=== PATIENT | female | born 1950 | race Caucasian/White ===

== ENCOUNTER 2017-11-05 13:19 | Inpatient (IN) ==
--- NOTE | 2017-11-05 15:06 | Emergency Department Note ---
Disposition Clinical Impression: Tachycardia, Elevated brain natriuretic peptide (BNP) level Hypertension Qualifiers: Hypertension type: unspecified Qualified Code(s): I10 - Essential (primary) hypertension Pulmonary edema Qualifiers: Chronicity: acute Qualified Code(s): J81.0 - Acute pulmonary edema Disposition: Admitted As Inpatient Condition: Fair Referrals: NONE,PCP [Primary Care Provider] - Aureliano Pearl [Family Provider] - Forms: ED Satisfaction Letter, Work/School Release Time of Disposition: 18:11 General Adult HPI - General Chief complaint: ED General Medical Stated complaint: Bilat feet / leg swelling Time Seen by Provider: 11/05/17 15:05 Source: patient Mode of arrival: ambulatory Limitations: no limitations Nursing Notes Reviewed: Yes Vital Signs Reviewed: Yes - History of Present Illness HPI Narrative: Patient is a 67-year-old female with past medical history of CVA, hypertension, diabetes, mitral valve prolapse. She presents today due to concern for lower extremity swelling. She states that around 3 weeks ago, she noticed ankle swelling that has progressively worsened up into her thighs and lower abdomen. She is also been mildly short of breath, especially on exertion. Denies any overt chest pain within the past 3 weeks. Denies any other nausea, vomiting, fevers, diarrhea, abdominal pain, dysuria, hematuria. She states that the last time she had an echocardiogram was around 5 years ago and states that she has never officially been diagnosed with CHF. She does not take any water pills daily. She states that she recently had x-rays of the lower 70s and bilateral lower extremity Dopplers that were negative for DVT or any fractures. She does not report any pain of the lower extremities with her swelling. She also notes that she has a history of poorly controlled diabetes and hypertension, says that she was in the hospital about 5 years ago after her stroke try to get blood pressure controlled. She states that she was seen by specialist and her blood pressure was never fully controlled. She is to be on hydralazine but states that she does not take anything recently for blood pressure control. She uses insulin but does state that her blood sugars always run "high" but was not able to give me a number. Pain Scale: 0 - Related Data Allergies Allergy/AdvReac Type Severity Reaction Status Date / Time Erythromycin Base Allergy Hives Verified 11/05/17 13:35 shellfish derived Allergy Anaphylaxis Verified 11/05/17 13:35 All systems ED: reviewed and negative except as stated. Constitutional: Denies: fever Cardiovascular: Denies: chest pain Respiratory: Reports: dyspnea. Denies: cough, wheezes, sputum production Gastrointestinal: Denies: abdominal pain, nausea, vomiting, diarrhea, constipation Genitourinary: Denies: urgency, dysuria, frequency, hematuria Musculoskeletal: Reports: other (Lower extremity edema) Neurological: Denies: headache, weakness, numbness Past Medical History - Past Medical History Attestation: Yes The following information was validated with the patient. Source: patient Medical history: Reports: CVA, diabetes, hypertension Psychiatric history: Reports: anxiety - Social History Smoking Status: Never smoker Smokeless Tobacco Status: No Alcohol use: Reports: none Drug use: Reports: none Physical Exam - General Limitations: no limitations General appearance: alert, in no apparent distress - Head Head exam: atraumatic, normocephalic, normal inspection - Eye Eye exam: Present: normal appearance, PERRL, EOMI - ENT ENT exam: normal exam, normal oropharynx, mucous membranes moist - Neck Neck exam: Present: normal inspection, full ROM, trachea midline - Chest Chest inspection: Present: normal inspection, symmetric chest wall rise - Respiratory Respiratory exam: Present: normal lung sounds bilaterally - Cardiovascular Cardiovascular exam: Present: regular rate, normal rhythm, normal heart sounds - Abdominal Exam Abdominal exam: Present: soft, Non-Tender, distention (Mild swelling/distention of the lower abdomen). Absent: tenderness, guarding, rebound, rigidity, De Leon' s sign, Rovsing's sign, tenderness at McBurney's Point - Extremities Exam Extremities exam: Present: other (Pitting edema of the lower extremities up to thighs and lower abdomen). Absent: tenderness, calf tenderness Course Course Narrative: Patient was tachycardic and hypertensive. We will continue to monitor blood pressure. If blood pressure does not stabilize, we will consider giving patient beta ema to reduce blood pressure and pulse rate. Otherwise, the rest of the vitals within normal limits. Physical exam shows a patient with lower extremity pitting edema up to her lower abdomen. Lungs are nontender, no calf tenderness, no erythema of the lower 70s. No signs of any cellulitis of the lower extremities. Abdomen was soft and nontender. Patient does have a history of mitral valve prolapse, has not had an echocardiogram within 5 years. Currently concern for possible CHF. We will obtain a CT bloodwork, troponin, EKG, chest x-ray. We will consider giving patient a dose of Lasix here for swelling. Patient was getting short of breath with just talking to me in the room. Will possibly admit the patient for further workup if vitals and subjective shortness breath do not improve. 17:26 BNP elevated in the 500s. Chest x-ray shows pulmonary vascular congestion and pulmonary edema. Patient looked like a fib on monitor, but EKG shows P waves, sinus rhythm. She denies any history of A. fib, not on any blood thinners. Due to P waves on EKG and in sinus rhythm, no blood thinners started at this time.. Patient was given a beta ema and Lasix 40 mg. She responded well to Lopressor 5 mg. Heart rate is now in the low 100s. Blood pressure has went from 2:30 systolic down to 190. Patient was at first adamant about not staying due to "having a clamp and shellfish/calcium allergy "and she states that she is allergic to multiple foods and did not want to stay for further care. However, after long discussion, patient has now agreed to come into the hospital for further evaluation of possible new onset congestive heart failure. Recommend the patient needs a echocardiogram for further evaluation. Vital Signs Temperature 97.8 F 11/05/17 13:29 Pulse Rate 122 11/05/17 13:29 Respiratory Rate 16 11/05/17 13:29 Blood Pressure 205/133 11/05/17 13:29 O2 Sat by Pulse Oximetry 97 11/05/17 13:29 Temperature 97.8 F 11/05/17 13:29 Pulse Rate 107 11/05/17 17:34 Respiratory Rate 18 11/05/17 17:34 Blood Pressure 188/112 11/05/17 17:34 O2 Sat by Pulse Oximetry 94 11/05/17 17:34 Oxygen Delivery Oxygen Delivery Room Air Medical Decision Making - [facility] Narrative Medical decision making narrative: Patient was tachycardic and hypertensive. We will continue to monitor blood pressure. If blood pressure does not stabilize, we will consider giving patient beta ema to reduce blood pressure and pulse rate. Otherwise, the rest of the vitals within normal limits. Physical exam shows a patient with lower extremity pitting edema up to her lower abdomen. Lungs are nontender, no calf tenderness, no erythema of the lower 70s. No signs of any cellulitis of the lower extremities. Abdomen was soft and nontender. Patient does have a history of mitral valve prolapse, has not had an echocardiogram within 5 years. Currently concern for possible CHF. We will obtain a CT bloodwork, troponin, EKG, chest x-ray. We will consider giving patient a dose of Lasix here for swelling. Patient was getting short of breath with just talking to me in the room. Will possibly admit the patient for further workup if vitals and subjective shortness breath do not improve. 17:26 BNP elevated in the 500s. Chest x-ray shows pulmonary vascular congestion and pulmonary edema. Patient looked like a fib on monitor, but EKG shows P waves, sinus rhythm. She denies any history of A. fib, not on any blood thinners. Due to P waves on EKG and in sinus rhythm, no blood thinners started at this time.. Patient was given a beta ema and Lasix 40 mg. She responded well to Lopressor 5 mg. Heart rate is now in the low 100s. Blood pressure has went from 2:30 systolic down to 190. Patient was at first adamant about not staying due to "having a clamp and shellfish/calcium allergy "and she states that she is allergic to multiple foods and did not want to stay for further care. However, after long discussion, patient has now agreed to come into the hospital for further evaluation of possible new onset congestive heart failure. Recommend the patient needs a echocardiogram for further evaluation. - Medical Records Medical records reviewed: Yes I reviewed the patient's medical records. - Lab Data Lab results reviewed: Yes I reviewed the patient's lab results. Result diagrams: 11/05/17 15:48 11/05/17 15:48 Lab Results 11/05/17 11/05/17 11/05/17 Range/Units 15:45 15:48 15:48 WBC 6.8 (4.3-11.1) K/mcL RBC 5.51 H (3.82-4.97) M/mcL Hgb 11.8 (11.5-15.4) g/dL Hct 39.6 (35.3-44.9) % MCV 71.9 L (83.0-100.0) fL MCH 21.4 L (28.0-33.3) pg MCHC 29.8 L (31.6-35.5) g/dL RDW 18.2 H (11.5-14.5) % Plt Count 302 (140-400) K/mcL MPV 10.9 (9.4-12.4) fL Immature Gran % 0.4 (0-4) % Seg Neutrophils % 67.6 % Lymphocytes % 20.7 % Monocytes % 6.5 % Eosinophils % 3.8 % Basophils % 1.0 % Neutrophils # 4.6 (1.6-8.9) K/mcL Lymphocytes # 1.4 (0.6-4.6) K/mcL Monocytes # 0.4 (0.0-1.3) K/mcL Eosinophils # 0.3 (0.0-0.6) K/mcL Basophils # 0.1 (0.0-0.2) K/mcL VBG pH (7.32-7.42) pH Units VBG pCO2 (41-51) mmHg VBG pO2 (25-50) mmHg VBG HCO3 (21-27) mEq/L Sodium 136 (136-145) mEq/L Potassium 3.9 (3.5-5.1) mEq/L Chloride 106 (98-107) mEq/L Carbon Dioxide 22 L (23-29) mEq/L BUN 16 (8-23) mg/dL Creatinine 0.77 (0.60-1.20) mg/dL Est GFR ( Amer) > 60 (> 60) Est GFR (Non-Af Amer) > 60 (> 60) BUN/Creatinine Ratio 21 (6-26) Glucose 267 H (70-105) mg/dL Calculated Osmolality 293 (280-300) Calcium 9.4 (8.6-10.3) mg/dL Total Bilirubin 1.5 H (0.3-1.0) mg/dL Direct Bilirubin 0.5 H (0.0-0.2) mg/dL Indirect Bilirubin 1.0 (0.0-1.2) mg/dL AST 14 (13-39) Units/L ALT 9 (7-52) Units/L Alkaline Phosphatase 97 (34-104) Units/L Troponin I 0.03 (< 0.04) ng/mL B-Natriuretic Peptide (Less than 100) pg/mL Serum Total Protein 6.8 (6.4-8.9) g/dL Albumin 3.9 (3.5-5.7) g/dL Globulin 2.9 (2.4-3.5) g/dL Albumin/Globulin Ratio 1.3 (1.1-2.2) Beta-Hydroxybutyric Acd 0.21 (0.02-0.27) mmol/L 11/05/17 11/05/17 Range/Units 15:48 16:10 WBC (4.3-11.1) K/mcL RBC (3.82-4.97) M/mcL Hgb (11.5-15.4) g/dL Hct (35.3-44.9) % MCV (83.0-100.0) fL MCH (28.0-33.3) pg MCHC (31.6-35.5) g/dL RDW (11.5-14.5) % Plt Count (140-400) K/mcL MPV (9.4-12.4) fL Immature Gran % (0-4) % Seg Neutrophils % % Lymphocytes % % Monocytes % % Eosinophils % % Basophils % % Neutrophils # (1.6-8.9) K/mcL Lymphocytes # (0.6-4.6) K/mcL Monocytes # (0.0-1.3) K/mcL Eosinophils # (0.0-0.6) K/mcL Basophils # (0.0-0.2) K/mcL VBG pH 7.43 H (7.32-7.42) pH Units VBG pCO2 31 L (41-51) mmHg VBG pO2 83 H (25-50) mmHg VBG HCO3 21 (21-27) mEq/L Sodium (136-145) mEq/L Potassium (3.5-5.1) mEq/L Chloride (98-107) mEq/L Carbon Dioxide (23-29) mEq/L BUN (8-23) mg/dL Creatinine (0.60-1.20) mg/dL Est GFR ( Amer) (> 60) Est GFR (Non-Af Amer) (> 60) BUN/Creatinine Ratio (6-26) Glucose (70-105) mg/dL Calculated Osmolality (280-300) Calcium (8.6-10.3) mg/dL Total Bilirubin (0.3-1.0) mg/dL Direct Bilirubin (0.0-0.2) mg/dL Indirect Bilirubin (0.0-1.2) mg/dL AST (13-39) Units/L ALT (7-52) Units/L Alkaline Phosphatase (34-104) Units/L Troponin I (< 0.04) ng/mL B-Natriuretic Peptide 588 H (Less than 100) pg/mL Serum Total Protein (6.4-8.9) g/dL Albumin (3.5-5.7) g/dL Globulin (2.4-3.5) g/dL Albumin/Globulin Ratio (1.1-2.2) Beta-Hydroxybutyric Acd (0.02-0.27) mmol/L - Radiology Data Radiology results reviewed: Yes I reviewed the patient's radiology results. Chest X-Ray 11/05/17 15:31 IMPRESSION: Cardiomegaly with mild pulmonary vascular congestion and edema. D/ / Betty Rich MD / Betty Rich MD Interpreting Provider: Betty Rich MD - EKG Data EKG #1 EKG attestation: Yes I reviewed and interpreted this EKG. S.B.A.R. - S.B.A.R. Situation: Demographics, MOA Background: Presenting Complaint, Relevant PMH, Meds, & Allergies Assessment: Vital Signs, Course and respsone to treatment, Exam Concerns, Patient/Family Expectation, Pertinant Lab Results Recommendation: Barrier(s) to disposition, Recommendation based on pending studies, treatments, or consults S.B.A.R. Report Given to: Dr. Carrillo Attestation Statement - Attestation Attestation: I examined this patient and my medical decision-making was reviewed with the Resident Physician, Dr. Cook. I agree with the documented findings, disposition and treatment plan as described except to the extent set forth below. Patient is a 67-year-old white female with history of hypertension and diabetes who presents to the permit today with a three-week history of gradually worsening lower extremity edema. Patient complains of some associated mild shortness of breath and chest tightness but states she has systolic time. During my assessment patient has some conversational dyspnea but no hypoxia. Patient is tachycardic and hypertensive on arrival but resting comfortably in no acute distress during my assessment. Patient states she has never been told she has congestive heart failure and has only ever taken Lasix when she was 31 years old and it was a one-time dose for lower leg edema and has not had any formal cardiac evaluation. Patient is not on any medication for diabetes or her blood pressure stating that she has had numerous specialists see her and has had difficulty with labile blood sugars as well as blood pressures and does not do well on medication. Patient denies any prior heart attack or cardiac evaluation. I agree with patient's physical exam findings as documented. Patient was tachycardic and hypertensive on arrival. Was placed on school lunch monitor and continuous pulse ox IV was established and labs were drawn and sent portal chest x-ray was obtained and she will be given aspirin. Patient's EKG shows atrial fibrillation at 99 bpm there is no old EKG for comparison. Chest x-ray shows cardiomegaly with pulm vascular congestion and edema. Patient's troponin is 0.03, BNP is elevated, patient with hyperglycemia without acidosis. Patient will be treated with aspirin and Lasix IV in the emergency department and we will watch her heart rate closely and instituted medications for rate control for her A. fib if necessary. We will also monitor her blood pressure closely as well. Patient will be admitted for further evaluation of new onset atrial fibrillation, CHF,. Patient's blood pressure remains elevated and following EKG review patient is in A. fib with RVR. Dr. Cook reviewed the patient's results and need for admission as well as medication to control her heart rate and blood thinners to be started. Patient stated she would not like to stay in the hospital and wanted to sign out AGAINST MEDICAL ADVICE. I went to bedside immediately to emphasized to the patient the need for hospitalization and further cardiac evaluation. Patient is initially refusing medications and is debating on whether or not she is willing to stay in the hospital tonight causing delay of care. Patient did finally consent to receive a dose of Lopressor and a dose of Lasix at bedside. She at this time is stating that she still does not know if she wants to stay in the hospital and that she is requesting time to think about her decision. As soon as patient takes the decision and if she is willing to stay we will complete medications and talk to cardiology.
[2017-11-05 16:12] LABS: VBG HCO3 21 mEq/L (21-27); VBG PCO2 31 mmHg (41-51); VBG PH 7.43 pH Units (7.32-7.42); VBG PO2 83 mmHg (25-50)
[2017-11-05 16:22] LABS: Basophils # 0.1 K/mcL (0.0-0.2); Eosinophils # 0.3 K/mcL (0.0-0.6); Eosinophils % 3.8 %; Hematocrit 39.6 % (35.3-44.9); Hemoglobin 11.8 g/dL (11.5-15.4); Immature Granulocytes % 0.4 % (0-4); Lymphocytes # 1.4 K/mcL (0.6-4.6); Lymphocytes % 20.7 %; Mean Corpuscular HGB Conc 29.8 g/dL (31.6-35.5); Mean Corpuscular Hemoglobin 21.4 pg (28.0-33.3); Mean Corpuscular Volume 71.9 fL (83.0-100.0); Mean Platelet Volume 10.9 fL (9.4-12.4); Monocytes # 0.4 K/mcL (0.0-1.3); Monocytes % 6.5 %; Neutrophils # 4.6 K/mcL (1.6-8.9); Platelet Count 302 K/mcL (140-400); Red Blood Count 5.51 M/mcL (3.82-4.97); Red Cell Distribution Width 18.2 % (11.5-14.5); Segmented Neutrophils % 67.6 %
[2017-11-05 16:33] LABS: Alanine Aminotransferase 9 Units/L (7-52); Albumin 3.9 g/dL (3.5-5.7); Albumin/Globulin Ratio 1.3 (1.1-2.2); Alkaline Phosphatase 97 Units/L (34-104); Aspartate Amino Transferase 14 Units/L (13-39); BUN/Creatinine Ratio 21 (6-26); Bilirubin,Direct 0.5 mg/dL (0.0-0.2); Bilirubin,Total 1.5 mg/dL (0.3-1.0); Blood Urea Nitrogen 16 mg/dL (8-23); Calcium 9.4 mg/dL (8.6-10.3); Carbon Dioxide 22 mEq/L (23-29); Chloride 106 mEq/L (98-107); Globulin 2.9 g/dL (2.4-3.5); Glucose 267 mg/dL (70-105); Osmolality,Calculated 293 (280-300); Potassium 3.9 mEq/L (3.5-5.1); Sodium 136 mEq/L (136-145); Total Protein 6.8 g/dL (6.4-8.9); Troponin I 0.03 ng/mL (< 0.04); eGFR For Non-African Americans > 60 (> 60)
[2017-11-05] MEDS ORDERED: Furosemide 40 MG/4 ML VIAL IVP ONE (16:48)
[2017-11-05] MEDS ORDERED: Aspirin 325 MG TABLET PO ONE (16:48)
[2017-11-05] MEDS ORDERED: *HR* Metoprolol 5 MG/5 ML VIAL IVP ONE (17:06)
[2017-11-05] MEDS ORDERED: *HR* Metoprolol 5 MG/5 ML VIAL IVP PRN (18:26)
[2017-11-05] MEDS ORDERED: Naloxone 0.4 MG/ML INJ IVP PRN (18:32)
[2017-11-05] MEDS ORDERED: Ondansetron 4 MG/2 ML VIAL IVP PRN (18:37)
--- NOTE | 2017-11-05 20:57 | Internal Med History&Physical ---
Date of Encounter: 11/05/17 Time of Encounter: 20:42 Internal Medicine - H&P: HPI Chief complaint: leg edema Admitted From: Home Plans for Post Hospital Care: Home History of present illness: Ms. Garcia is a 67 year old female history of HTN and Mitral Valve Prolaspe presented to ED for bliat pedal edema up to her thighs and abdomen. In ED her HR 122 and BP 224/138- given lopressor and decrease to HR 107 BP 188/112. She was given Lasix 40 IV and notes edema has already started to improve. BNP 588. Chest X-ray showed cardiomegaly, vascular congestion and pleural edeam. There was concern for A foib but EKG showed sinus tachycardia. Onset 3 weeks ago after injury to left ankle with X-ray and US duplex normal. Edema started in right leg and gradually progressed until reached her abdomen- - notes significantly worse in past week. She has had weight gain of at least 35 lbs in 3 weeks with 12 lbs this past week. She admits to shortness of breath with orthopnea at her baseline. She has had mild nausea and increased urinary urgency. She has had significant edema once many years ago and noted that she just took Lasix and then had no problems. She is frustrated that we can't just give her medications or do an echo tonight. She is anxious about being admitted due to significant selfish allergy that resolved in anaphylaxis - as a result she avoids all food with added calcium, some blood thinners, all statins, and all CCBs. She was diagnosed with DM after her CVA - she had long admission of almost 2 months because her blood sugar and blood pressure were difficult to control. She notes metformin doesn't work and that blood glucose is very brittle with insulin . One year ago she was taking lopressor and hydralazine but her blood pressure was never under control- attributed to stress. Her last Echo was 5 years ago and showed Mitral Valve prolapse but no intervention was necessary. She has had MVP since and can sometimes "feel the prolaspe" with severe chest pressure or hear a clicking noise from heart - but denies either recently. Family history of sister also born with heart mummer. Her father form PA at age 53 and mother has DM and first PA in 60s. Never smoker who drinks EtOH once a year and denies illicit substance use. Past Med Surg Social Fam HX - Past Medical History Medical history: CVA, diabetes, hypertension Additional medical history: mitrovalve prolasp Psychiatric history: anxiety - Past Surgical History Additional surgical history: D&C - Social History Smoking Status: Never smoker Smokeless Tobacco Status: No Alcohol use: none Drug use: none Internal Medicine - H&P: Meds Aspirin [Adult Aspirin] 162 mg PO BID 11/05/17 [History] 3 Allergy/AdvReac Type Severity Reaction Status Date / Time Calcium Channel Blocking Allergy Anaphylaxis Verified 11/05/17 20:34 Agent Dilt Erythromycin Base Allergy Hives Verified 11/05/17 13:35 shellfish derived Allergy Anaphylaxis Verified 11/05/17 13:35 [id number] Reductase Allergy Anaphylaxis Verified 11/05/17 20:34 Inhibitor [Statins] All Systems PM: A 10-system review of systems was performed and is negative for pertinent findings except as documented above in the HPI. Review of systems: she is anxious and undeceive about being admitted. Shows poor insight into the seriousness of her medical condition - Constitutional Constitutional: weight gain, no fatigue, no falls - EENT Eyes: no blurry vision, no change in vision - Cardiovascular Cardiovascular ROS IM: dyspnea, edema, orthopnea, no chest pain, no irregular heart rhythm, no palpitations - Respiratory Respiratory: dyspnea on exertion, no cough, no wheezing - Gastrointestinal Gastrointestinal: constipation, nausea, no abdominal pain, no diarrhea, no vomiting - Genitourinary Genitourinary: urinary urgency, no dysuria, no urinary frequency - Musculoskeletal Musculoskeletal ROS IM: back pain, limited range of motion, numbness, tingling, no arthralgias Additional comments: in feet bilat - Integumentary Integumentary IM: rash Additional comments: puritic rash started on week ago and now covers right arm - Neurological Neurological ROS: no confusion, no dizziness, no frequent falls, no headache(s) - Psychiatric Psychiatric: anxiety, no change in appetite - Endocrine Endocrine IM: no fatigue, no polydipsia, no polyphagia, no polyuria - Constitutional Vitals: Temp Pulse Resp BP Pulse Ox 97.8 F 117 16 166/127 97 11/05/17 13:29 11/05/17 19:16 11/05/17 19:16 11/05/17 19:16 11/05/17 19:16 General appearance: Present: mild distress, A&O X 3, pleasant, answers questions appropriately Exam: she appears anxious but sitting comfortably in chair - Head Head exam: Present: atraumatic, normocephalic - ENT ENT exam: Present: mucous membranes moist, normal oropharynx - Respiratory Respiratory exam: Present: rales. Absent: accessory muscle use, wheezes Additional comments: mild rales lower lung - Cardiovascular Cardiovascular exam: Present: systolic murmur, tachycardia - GI/Abdominal GI/Abdominal exam: Present: distended, hyperactive bowel sounds. Absent: mass, splenomegaly, tenderness - Extremities Exam Extremities exam: Present: calf tenderness, full ROM, tenderness. Absent: radial pulses palpable and symmetrical Additional comments: dermatitis on right rosado - Psychiatric Psychiatric exam: Present: anxious, normal affect. Absent: agitated, manic - Skin Skin exam: Present: excoriation, normal color. Absent: diaphoretic, urticaria, vesicles Additional comments: multiple 1-3 mm round excoriations not raised covering right arm with few on back and chest Internal Med - H&P Results - Labs CBC & Chem 7: 11/05/17 15:48 11/05/17 15:48 - Assessment and plan (1) Heart failure Current Visit: Yes Status: Suspected Assessment and plan: High suspicion of heart failure given MVP with pulmonary edema and significant peripheral edema. BNP 588 - Plan for echo tomorrow - consider Cardiology consult - Lasix 40 IV daily - Fluid restriction diet with NPO at midnight - strict I/Os - Lopressor 5 mg IV q 6hr - repeat CMP in am due to Lasix naive Qualifiers: Heart failure chronicity: acute Qualified Code(s): I50.9 - Heart failure, unspecified (2) Hypertension Current Visit: Yes Status: Acute Assessment and plan: Hyptension urgency improved with Lopressor - avoid strict blood pressure control - Lopressor 5 mg IV prn 6 hrs for BP above 180 Qualifiers: Hypertension type: essential hypertension Qualified Code(s): I10 - Essential (primary) hypertension (3) Diabetes Current Visit: Yes Status: Acute Assessment and plan: Uncontrolled DM with non-adherence to medications - low dose ISS - cardiac and diabetic diet - order A1C - Lipid cascade - already scheduled for PCP new patient next week Qualifiers: Diabetes mellitus type: type 2 Diabetes 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
[2017-11-05] MEDS: Insulin LISPRO 300 UNITS/3 ML VIAL SQ SCH (23:16)
[2017-11-05] MEDS: hydrALAZINE 10 MG TABLET PO PRN (23:31)
[2017-11-06] MEDS ORDERED: cloNIDine HCl 0.1 MG TABLET PO ONE (03:56)
[2017-11-06] MEDS ORDERED: cloNIDine HCl 0.1 MG TABLET ONE (04:01)
[2017-11-06 04:32] LABS: Basophils # 0.1 K/mcL (0.0-0.2); Basophils % 0.9 %; Eosinophils # 0.3 K/mcL (0.0-0.6); Eosinophils % 3.9 %; Hematocrit 39.6 % (35.3-44.9); Hemoglobin 11.7 g/dL (11.5-15.4); Immature Granulocytes % 0.3 % (0-4); Lymphocytes # 1.8 K/mcL (0.6-4.6); Lymphocytes % 23.7 %; Mean Corpuscular HGB Conc 29.5 g/dL (31.6-35.5); Mean Corpuscular Hemoglobin 20.9 pg (28.0-33.3); Mean Corpuscular Volume 70.7 fL (83.0-100.0); Mean Platelet Volume 10.5 fL (9.4-12.4); Monocytes # 0.7 K/mcL (0.0-1.3); Monocytes % 9.2 %; Neutrophils # 4.6 K/mcL (1.6-8.9); Platelet Count 314 K/mcL (140-400); Red Cell Distribution Width 18.6 % (11.5-14.5)
[2017-11-06 04:47] LABS: Chol/HDL Ratio 4.8 (0-4.9)
[2017-11-06 04:50] LABS: Alanine Aminotransferase 9 Units/L (7-52); Albumin/Globulin Ratio 1.4 (1.1-2.2); Alkaline Phosphatase 93 Units/L (34-104); Aspartate Amino Transferase 14 Units/L (13-39); BUN/Creatinine Ratio 20 (6-26); Bilirubin,Total 1.8 mg/dL (0.3-1.0); Blood Urea Nitrogen 14 mg/dL (8-23); Calcium 9.4 mg/dL (8.6-10.3); Carbon Dioxide 25 mEq/L (23-29); Chloride 106 mEq/L (98-107); Globulin 2.9 g/dL (2.4-3.5); Glucose 200 mg/dL (70-105); Osmolality,Calculated 294 (280-300); Potassium 3.5 mEq/L (3.5-5.1); Sodium 139 mEq/L (136-145); Total Protein 6.9 g/dL (6.4-8.9); eGFR For Non-African Americans > 60 (> 60)
[2017-11-06 10:52] LABS: Estimated Average Glucose 226 mg/dl; Hemoglobin A1C 9.5 %
[2017-11-06] MEDS: Insulin LISPRO 300 UNITS/3 ML VIAL SQ SCH ×4 (11:54→23:54)
[2017-11-06] MEDS: Furosemide 40 MG/4 ML VIAL IVP SCH (11:59)
[2017-11-06] MEDS: hydrALAZINE 10 MG TABLET PO PRN (12:48)
[2017-11-06] MEDS ORDERED: Metoprolol XL (24 HR) Succ 25 MG TAB.ER.24H PO SCH (13:00)
--- NOTE | 2017-11-06 13:48 | Internal Med Progress Note ---
<Arthur Hopper - Last Filed: 11/06/17 19:05> Hospitalist Progress Note - Encounter Date of Encounter: 11/06/17 Time of Encounter: 09:45 - Subjective Interval History: Isha is accompanied by , she denies chest pain or shortness of breath, swelling has improved with the lasix. She says the swelling started 3 weeks ago and has persisted/worsened, she has gained 12 lbs in 1 week. She states she does not take any meds for her blood pressure, that she knows it is high and has been since she was in her 30s, she is fearful of shellfish and states "CCBs have caused her anaphylaxis in the past." - Exam Vitals: Temp Pulse Resp BP Pulse Ox 97.9 F 94 16 172/104 94 11/06/17 04:56 11/06/17 12:46 11/06/17 07:19 11/06/17 12:46 11/06/17 04:56 Exam: Gen: a&ox3 CV: irregularly irregular, s1/s2, no murmur, rub, or gallop Lung: CTAB without wheeze, normal chest wall excursion abd: soft, nontender, no hepatosplenomegaly ext: +1 pitting edema skin: no cyanosis, peticiae, or lesion - Assessment and Plan (1) Acute systolic CHF (congestive heart failure) Current Visit: Yes Status: Acute Assessment and Plan: Progressive weight gain of 12 lbs in 1 week, LE edema, BNP 588, cxr with vasc congestion and cardiomegaly longstanding hypertension uncontrolled patient resistance to medication management/compliance echo performed shows LVEF 25-30%; aortic and mitral calcification P: Cardiology consulted Cont Lasix 40mg IV discussed salt restriction, fluid restriction, daily weights, (2) Hypertension Current Visit: Yes Status: Acute Assessment and Plan: Long hx of reported elevated bps without antihypertensive treatment due in part to patient non-compliance with recommended therapies Patient receiving inpatient Lasix, betablocker, hydralazine, lowering map slowly in first 1/2 day of admission (3) Atrial fibrillation Current Visit: Yes Status: Acute Assessment and Plan: irregularly irregular on exam presence of chf, htn, dm, cva, age, gender chads, vasc score of 7 fear of allergy to anticoag interested in eliquis, wants to start her new meds "one at a time" in case of allergic reaction (4) Diabetes Current Visit: Yes Status: Acute Assessment and Plan: on low dose ssi LDL 101 a1c 9.5 (5) DVT prophylaxis Current Visit: Yes Status: Acute Assessment and Plan: heparin sq - Time Spent with Patient Total time spent is greater than 50% in coordination of care (as documented) at patient's floor/unit and/or counseling patient: Internal Medicine: Result - Labs CBC & Chem 7: 11/06/17 03:52 11/06/17 03:52 Labs: Short CBC 11/06/17 Range/Units 03:52 WBC 7.5 (4.3-11.1) K/mcL Hgb 11.7 (11.5-15.4) g/dL Hct 39.6 (35.3-44.9) % Plt Count 314 (140-400) K/mcL Neutrophils # 4.6 (1.6-8.9) K/mcL BMP 11/06/17 03:52 Sodium 139 Potassium 3.5 Chloride 106 Carbon Dioxide 25 BUN 14 Creatinine 0.70 Glucose 200 H Calcium 9.4 Liver Function 11/06/17 Range/Units 03:52 Total Bilirubin 1.8 H (0.3-1.0) mg/dL AST 14 (13-39) Units/L ALT 9 (7-52) Units/L Alkaline Phosphatase 93 (34-104) Units/L Albumin 4.0 (3.5-5.7) g/dL - Impressions Impressions Echocardiogram 11/05/17 20:10 Impressions: LVEF 25-30%. Normal LV chamber size. Mild concentric left ventricular hypertrophy. Severe global left ventricular systolic dysfunction. Indeterminate diastolic function. Mildly dilated and hypokinetic right ventricle. Mild aortic sclerosis by Doppler. Mean gradient 8 mmHg. Severity of possibly underestimated due to LV systolic dysfunction. Visually, valve excursion appears adequate. Mildly thickened and calcified mitral valve leaflets. No mitral valve prolapse. Mild-moderate pulmonary hypertension. Estimated RVSP is 42-52 mmHg, including an estimated RA pressure of 10-20 mmHg. Left Ventricular Wall Motion: Rest Echo Findings The apex, apical inferior, mid inferior, basal inferior, apical anterior, mid anterior, basal anterior, apical septal, mid inferior septal, basal inferior septal, apical lateral, mid anterior lateral, basal anterior lateral, mid anterior septal, mid inferior lateral, basal anterior septal and basal inferior lateral graves were hypokinetic. Findings: Study Quality * Technically adequate exam. ECG Findings * Atrial fibrillation. Left Ventricle * LVEF 25-30%. * Normal LV chamber size. Mild concentric left ventricular hypertrophy. * Severe global left ventricular systolic dysfunction. * Indeterminate diastolic function. Right Ventricle * Mildly dilated and hypokinetic right ventricle. Left Atrium * Moderately dilated left atrium. Right Atrium * Moderately dilated right atrium. Aortic Valve * Trileaflet aortic valve. * Mildly calcified aortic valve leaflets. * Mild aortic sclerosis by Doppler. Mean gradient 8 mmHg. Severity of possibly underestimated due to LV systolic dysfunction. * No aortic regurgitation. Mitral Valve * Mild mitral annular calcification * Mildly thickened and calcified mitral valve leaflets. No mitral valve prolapse. * Trace mitral regurgitation. * No mitral stenosis. Tricuspid Valve * Normal tricuspid valve structure. * Mild tricuspid regurgitation. * Mild-moderate pulmonary hypertension. * Estimated RVSP is 42-52 mmHg. * Estimated RA pressure is 10-20 mmHg. Pulmonic Valve * Normal pulmonic valve structure and function. * No pulmonic regurgitation. Aorta * Normally sized aortic root. Pericardium * There is a trivial pericardial effusion present. IVC * The IVC is not dilated. * < 50% respiratory change. Pulmonary Artery * Normal visualized portions of the main pulmonary artery. - VTE Documentation of Mechanical Device: Venous foot pump, device Consult Discharge Plan - Plan Referrals: NONE,PCP [Primary Care Provider] - Aureliano Pearl [Family Provider] - <Manpreet Machado - Last Filed: 11/06/17 19:21> Hospitalist Progress Note - Encounter Date of Encounter: 11/06/17 - Exam Vitals: Temp Pulse Resp BP Pulse Ox 96.4 F L 120 19 183/114 99 11/06/17 15:54 11/06/17 15:54 11/06/17 15:54 11/06/17 15:54 11/06/17 17:00 - Time Spent with Patient Total time spent is greater than 50% in coordination of care (as documented) at patient's floor/unit and/or counseling patient: Internal Medicine: Result - Labs CBC & Chem 7: 11/06/17 03:52 11/06/17 03:52 Labs: Short CBC 11/06/17 Range/Units 03:52 WBC 7.5 (4.3-11.1) K/mcL Hgb 11.7 (11.5-15.4) g/dL Hct 39.6 (35.3-44.9) % Plt Count 314 (140-400) K/mcL Neutrophils # 4.6 (1.6-8.9) K/mcL BMP 11/06/17 03:52 Sodium 139 Potassium 3.5 Chloride 106 Carbon Dioxide 25 BUN 14 Creatinine 0.70 Glucose 200 H Calcium 9.4 Liver Function 11/06/17 Range/Units 03:52 Total Bilirubin 1.8 H (0.3-1.0) mg/dL AST 14 (13-39) Units/L ALT 9 (7-52) Units/L Alkaline Phosphatase 93 (34-104) Units/L Albumin 4.0 (3.5-5.7) g/dL - Impressions Impressions Echocardiogram 11/05/17 20:10 Impressions: LVEF 25-30%. Normal LV chamber size. Mild concentric left ventricular hypertrophy. Severe global left ventricular systolic dysfunction. Indeterminate diastolic function. Mildly dilated and hypokinetic right ventricle. Mild aortic sclerosis by Doppler. Mean gradient 8 mmHg. Severity of possibly underestimated due to LV systolic dysfunction. Visually, valve excursion appears adequate. Mildly thickened and calcified mitral valve leaflets. No mitral valve prolapse. Mild-moderate pulmonary hypertension. Estimated RVSP is 42-52 mmHg, including an estimated RA pressure of 10-20 mmHg. Left Ventricular Wall Motion: Rest Echo Findings The apex, apical inferior, mid inferior, basal inferior, apical anterior, mid anterior, basal anterior, apical septal, mid inferior septal, basal inferior septal, apical lateral, mid anterior lateral, basal anterior lateral, mid anterior septal, mid inferior lateral, basal anterior septal and basal inferior lateral graves were hypokinetic. Findings: Study Quality * Technically adequate exam. ECG Findings * Atrial fibrillation. Left Ventricle * LVEF 25-30%. * Normal LV chamber size. Mild concentric left ventricular hypertrophy. * Severe global left ventricular systolic dysfunction. * Indeterminate diastolic function. Right Ventricle * Mildly dilated and hypokinetic right ventricle. Left Atrium * Moderately dilated left atrium. Right Atrium * Moderately dilated right atrium. Aortic Valve * Trileaflet aortic valve. * Mildly calcified aortic valve leaflets. * Mild aortic sclerosis by Doppler. Mean gradient 8 mmHg. Severity of possibly underestimated due to LV systolic dysfunction. * No aortic regurgitation. Mitral Valve * Mild mitral annular calcification * Mildly thickened and calcified mitral valve leaflets. No mitral valve prolapse. * Trace mitral regurgitation. * No mitral stenosis. Tricuspid Valve * Normal tricuspid valve structure. * Mild tricuspid regurgitation. * Mild-moderate pulmonary hypertension. * Estimated RVSP is 42-52 mmHg. * Estimated RA pressure is 10-20 mmHg. Pulmonic Valve * Normal pulmonic valve structure and function. * No pulmonic regurgitation. Aorta * Normally sized aortic root. Pericardium * There is a trivial pericardial effusion present. IVC * The IVC is not dilated. * < 50% respiratory change. Pulmonary Artery * Normal visualized portions of the main pulmonary artery. - Attending Attestation Ms Garcia was placed in observation earlier today. She has uncontrolled BP and has been found to have systolic heart failure. Agree with above assessment and plan. <Arthur Hopper - Last Filed: 11/06/17 19:05> (2) Hypertension Qualifiers: Hypertension type: essential hypertension Qualified Code(s): I10 - Essential (primary) hypertension (3) Atrial fibrillation Qualifiers: Atrial fibrillation type: paroxysmal Qualified Code(s): I48.0 - Paroxysmal atrial fibrillation (4) Diabetes Qualifiers: Diabetes mellitus type: type 2 Diabetes mellitus account support specialist insulin use: unspecified account support specialist insulin use status Diabetes mellitus complication status : with unspecified complications Qualified Code(s): E11.8 - Type 2 diabetes mellitus with unspecified complications
--- NOTE | 2017-11-06 14:32 | Cardiology Consult Note ---
Date of Encounter: 11/06/17 Time of Encounter: 14:29 Assessment and Plan (1) Acute systolic CHF (congestive heart failure) Current Visit: Yes Status: Acute Acute systolic CHF. TTE completed and shows EF at 25-30% global systolic dysfunction, mild LVH, mild aortic stenosis, no mitral valve prolapse, mild- moderate PAH. Reports echo 5 years ago at [facility]side [facility] and was told she had mitral valve prolapse but she does not remember what her EF was at that time. Mild edema noted. Agree with IV lasix. I discussed recommendation for [facility] R/B/A and she declines. States that she will consider going to [place] or [place] to have done. No urgent need for in- patient transfer at this time. Troponin negative. GDMT discussed. She is agreeable to take carvedilol and losartan. Recommend starting one at a time to assess side effects with her multiple allergies. Low sodium diet and daily weights. (2) Hypertension Current Visit: Yes Status: Acute Uncontrolled hypertension. Reports reaction to norvasc in the past. She did well on carvedilol and hydralizine previously but stopped taking. Start losartan. Low sodium diet. Qualifiers: Hypertension type: essential hypertension Qualified Code(s): I10 - Essential (primary) hypertension (3) Atrial fibrillation Current Visit: Yes Status: Acute Noted to have intermittent afib on telemetry and EKG with evidence of afib.EKG reviewed with Dr. Winchester. Will start carvedilol tomorrow if tolerating losartan. She is a CHADS VASc= 7 for CHF, HTN, DM, CVA2, age and gender. High risk for recurrent CVA. Reports allergies to some blood thinners. Will need to discuss assisted AC. Qualifiers: Atrial fibrillation type: paroxysmal Qualified Code(s): I48.0 - Paroxysmal atrial fibrillation Discussion w patient/family: The assessment and plan as outlined above was discussed with the patient and/or family members who expressed understanding and agreement. All questions were answered. Thank you for involving us in the care of your patient. Please call with any questions. History of Present Illness Consult date: 11/06/17 Requesting physician: Manpreet Machado Consult reason: systolic dysfunction Chief complaint: BLE edema and SOB for three weeks History of present illness: Ms. Garcia is a 67 year old female with past medical history significant for DM type II, HTN, and CVA who presented with the c/o SOB and BLE edema. TTE completed and shows EF at 25-30% global systolic dysfunction, mild LVH, mild aortic stenosis, no mitral valve prolapse, mild-moderate PAH. Cardiology consulted for new cardiomyopathy. B/p was noted to be elevated up to 215/133. She denies chest pain. Admits to intermittent palpitations. Denies orthopnea or PND. Reports multiple allergies due to shell fish allergy. She states she is was unable to take her b/p meds. States that she has throat swelling with any medication with calcium in it. Also states that her diabetic meds made her blood sugars increase so she stopped taking them. Past Med Surg Social Fam HX - Past Medical History Medical history: CVA, diabetes, hypertension Additional medical history: mitrovalve prolasp Psychiatric history: anxiety - Past Surgical History Additional surgical history: D&C - Social History Smoking Status: Never smoker Smokeless Tobacco Status: No Alcohol use: none Drug use: none - Family History Father Name: Juan Pablo Mandel Living Status: Age at : 53 Cause of : MS Hx Family Cardiac Disorders: Yes Mother Name: Gabriela Holland Age: 88 Living Status: Still Living Hx Family Cardiac Disorders: Yes (3 MIs) Hx Family Respiratory Disorders: Yes Hx Family Endocrine Disorder: Yes Sister Name: Cuca Elizabeth Living Status: Still Living Hx Family Cardiac Disorders: Yes Medications and Allergies Aspirin [Adult Aspirin] 162 mg PO BID 11/05/17 [History] 3 Allergy/AdvReac Type Severity Reaction Status Date / Time Calcium Channel Blocking Allergy Anaphylaxis Verified 11/05/17 20:34 Agent Dilt Erythromycin Base Allergy Hives Verified 11/05/17 13:35 Iodinated Contrast- Oral and Allergy Anaphylaxis Verified 11/06/17 14:45 IV Dye shellfish derived Allergy Anaphylaxis Verified 11/05/17 13:35 Rancayt-Drs-Gph Reductase Allergy Anaphylaxis Verified 11/05/17 20:34 Inhibitor [Statins] All Systems Review: The remainder of the systems were reviewed and are negative Physical Examination Vital Signs, Last 4 Hours Pulse BP 11/06/17 12:46 94 172/104 11/06/17 12:04 88 195/129 General: Conversant, No Apparent Distress HEENT: Atraumatic, Normocephaly, Mucus Membranes Moist Neck: No JVD, Normal carotid pulses Cardiac: Reg Rate and Rhythm, Normal S1 and S2, No Murmur Lungs: Normal Breath Sounds, No Wheeze, Rales, Rhonchi Neuro: Alert and responsive, No focal deficits noted Abdomen: Soft, Non-Tender Skin: No rashes noted on visualized skin Musculoskeletal: No Chest Wall Tenderness Extremities: No Clubbing, No Cyanosis, Normal Pulses, Other (Non-pitting edema BLE) Results 11/06/17 03:52 11/06/17 03:52 Lab Results 11/06/17 11/06/17 03:52 03:52 WBC 7.5 Hgb 11.7 Hct 39.6 Plt Count 314 Sodium 139 Potassium 3.5 Chloride 106 Carbon Dioxide 25 BUN 14 Creatinine 0.70 Glucose 200 H Calcium 9.4 Total Bilirubin 1.8 H AST 14 ALT 9 Alkaline Phosphatase 93 - Imaging and Cardiology Echo: report reviewed - EKG Interpretation EKG results cardiology: personally reviewed Consult Discharge Plan - Plan Referrals: NONE,PCP [Primary Care Provider] - Aureliano Pearl [Family Provider] -
[2017-11-07] MEDS: hydrALAZINE 10 MG TABLET PO PRN
[2017-11-07] MEDS ORDERED: *HR* Metoprolol 5 MG/5 ML VIAL IVP ONE (04:20)
[2017-11-07 06:37] LABS: Hematocrit 37.4 % (35.3-44.9); Hemoglobin 10.9 g/dL (11.5-15.4); Mean Corpuscular HGB Conc 29.1 g/dL (31.6-35.5); Mean Corpuscular Hemoglobin 20.7 pg (28.0-33.3); Mean Corpuscular Volume 71.1 fL (83.0-100.0); Mean Platelet Volume 10.5 fL (9.4-12.4); Platelet Count 286 K/mcL (140-400); Red Blood Count 5.26 M/mcL (3.82-4.97); Red Cell Distribution Width 18.2 % (11.5-14.5)
[2017-11-07 06:57] LABS: BUN/Creatinine Ratio 19 (6-26); Blood Urea Nitrogen 15 mg/dL (8-23); Calcium 9.2 mg/dL (8.6-10.3); Carbon Dioxide 26 mEq/L (23-29); Chloride 104 mEq/L (98-107); Glucose 201 mg/dL (70-105); Osmolality,Calculated 289 (280-300); Potassium 3.5 mEq/L (3.5-5.1); Sodium 136 mEq/L (136-145); eGFR For Non-African Americans > 60 (> 60)
[2017-11-07 07:13] VITALS: BP 152/107
[2017-11-07] MEDS: Furosemide 40 MG/4 ML VIAL IVP SCH (07:40)
[2017-11-07] MEDS: Insulin LISPRO 300 UNITS/3 ML VIAL SQ SCH (07:43)
--- NOTE | 2017-11-07 08:52 | Cardiology Progress Note ---
Date of Encounter: 11/07/17 Time of Encounter: 08:00 Assessment and Plan (1) Acute systolic CHF (congestive heart failure) Current Visit: Yes Status: Acute Acute systolic CHF. TTE completed and shows EF at 25-30% global systolic dysfunction, mild LVH, mild aortic stenosis, no mitral valve prolapse, mild- moderate PAH. Of note, reports echo 5 years ago at [facility]side hospital and was told she had mitral valve prolapse but she does not remember what her EF was at that time. I discussed recommendation for [facility] R/B/A and she declines. States that she will consider going to [place] or [place] to have done. No urgent need for in- patient transfer at this time. Troponin negative. Discussed [facility] again with patient, indication for testing and she declines as inpatient. Will reconsider in the outpatient setting. Will arrange for f/u with Dr. Winchester in 1-2 weeks. Losartan started yesterday, BP control improved. No side effects reported. Will start low dose coreg today, patient is agreeable. Anticipate doses will be able to be increased in the outpatient setting. Nearly euvolemic upon exam, may benefit from prn lasix dosing as outpatient. No further recommendations, will sign-off. (2) Hypertension Current Visit: Yes Status: Acute Uncontrolled hypertension. Reports reaction to norvasc in the past. She did well on carvedilol and hydralizine previously but stopped taking. Losartan started yesterday, patient tolerating. Will start coreg today. BP control appears to have improved. Further dose titration Qualifiers: Qualified Code(s): I10 - Essential (primary) hypertension (3) Atrial fibrillation Current Visit: Yes Status: Acute Noted to have intermittent afib on telemetry and EKG with evidence of afib. EKG reviewed with Dr. Winchester. Telemetry reviewed, PAF noted. Will start low dose coreg today as planned. Increase as needed to improve HR control as BP will tolerate. She is a CHADS VASc= 7 for CHF, HTN, DM, CVA2, age and gender. High risk for recurrent CVA. Pharmacy consult yesterday with recommendations to start Eliquis (no allergy). Discussed with patient, she is agreeable, will start Eliquis 5 mg BID today. 30 day card provided. Was taking 162 mg asa BID at home, will decrease to once daily. Qualifiers: Qualified Code(s): I48.0 - Paroxysmal atrial fibrillation Discussion w patient/family: The assessment and plan as outlined above was discussed with the patient and/or family members who expressed understanding and agreement. All questions were answered. Thank you for involving us in the care of your patient. Please call with any questions. The patient will be discussed and reviewed with Dr. Riley; changes to be made accordingly. Subjective Principal diagnosis: Afib, CHF Interval history: Seen and examined. No chest pain overnight. No significant palpitations described. Patient is anxious for discharge. Objective Vital Signs, Last 4 Hours Temp Pulse Resp BP Pulse Ox 11/07/17 07:09 97.5 F L 85 15 152/107 96 11/07/17 05:06 97.3 F L 97 18 210/110 92 General: Conversant, No Apparent Distress HEENT: Atraumatic, Normocephaly, Mucus Membranes Moist Cardiac: Other (irregularly irregular) Lungs: Normal Breath Sounds Neuro: Alert and responsive Abdomen: Soft Skin: No rashes noted on visualized skin Musculoskeletal: No Chest Wall Tenderness Extremities: Other (mild, pre-tibial edema) Results 11/07/17 06:10 11/07/17 06:10 Lab Results 11/07/17 11/07/17 06:10 06:10 WBC 6.7 Hgb 10.9 L Hct 37.4 Plt Count 286 Sodium 136 Potassium 3.5 Chloride 104 Carbon Dioxide 26 BUN 15 Creatinine 0.78 Glucose 201 H Calcium 9.2 Active Medications Apixaban (Eliquis) 5 mg PO BID [facility] Stop: 05/09/18 09:01 Last Admin: 11/07/17 10:24 Dose: 5 mg Aspirin (Aspirin) 81 mg PO DAILY [facility] Stop: 05/09/18 09:01 Last Admin: 11/07/17 10:24 Dose: 81 mg Carvedilol (Coreg) 3.125 mg PO BIDWM CARLOS PRN Reason: Protocol Stop: 05/09/18 09:01 Last Admin: 11/07/17 10:23 Dose: 3.125 mg Furosemide (Lasix) 40 mg IVP DAILY [facility] Stop: 05/08/18 09:01 Last Admin: 11/07/17 07:40 Dose: 40 mg Hydralazine HCl (Hydralazine) 10 mg PO Q6H PRN PRN Reason: Blood Pressure - High Stop: 05/07/18 23:10 Last Admin: 11/07/17 00:00 Dose: 10 mg Insulin Human Lispro (Humalog) 0 units SQ HS CARLOS PRN Reason: Protocol Stop: 05/07/18 21:01 Last Admin: 11/06/17 23:54 Dose: Not Given Insulin Human Lispro (Humalog) 0 units SQ TIDWM CARLOS PRN Reason: Protocol Stop: 05/08/18 08:01 Last Admin: 11/07/17 07:43 Dose: 4 units Losartan Potassium (Cozaar) 25 mg PO DAILY [facility]LOS PRN Reason: Protocol Stop: 05/08/18 14:46 Last Admin: 11/07/17 07:41 Dose: 25 mg Naloxone HCl (Narcan) 0.4 mg IVP Q2MIN PRN PRN Reason: SEE COMMENTS Stop: 05/07/18 18:33 Ondansetron HCl (Zofran) 4 mg IVP Q8HR PRN; Protocol PRN Reason: Nausea And Vomiting Stop: 05/07/18 18:38 - Imaging and Cardiology Echo: report reviewed Other Results: 12 hour tele: avg HR=96 afib. - EKG Interpretation EKG results cardiology: personally reviewed - VTE Documentation of Mechanical Device: Venous foot pump, device Consult Discharge Plan - Plan Referrals: NONE,PCP [Primary Care Provider] - Aureliano Pearl [Family Provider] - Prescriptions: Apixaban [Eliquis] 5 mg PO BID #60 tablet Carvedilol [Coreg] 3.125 mg PO BIDWM #30 tablet Furosemide [Lasix] 20 mg PO DAILY 30 Days #30 tablet Losartan [Cozaar] 25 mg PO DAILY #30 tablet
[2017-11-07] MEDS ORDERED: Apixaban 5 MG TABLET PO SCH (09:00)
[2017-11-07] MEDS ORDERED: Aspirin 81 MG TAB.CHEW PO SCH (09:00)
--- NOTE | 2017-11-07 10:52 | Discharge Summary ---
- NOTES TO OUTPATIENT PROVIDER Notes to Outpatient Provider: Pt admited with uncontrolled HTN. Found to have systolic CHF. Has been placed on medications for management (Coreg, Cozaar and Eliquis) and is to follow up with PCP and cardiology. Date of Encounter: 11/07/17 Time of Encounter: 10:20 - Discharge Diagnosis (1) Acute systolic CHF (congestive heart failure) Priority: Primary Status: Resolved (2) Pulmonary edema Priority: Secondary Status: Resolved Qualifiers: Chronicity: acute Qualified Code(s): J81.0 - Acute pulmonary edema (3) Atrial fibrillation Priority: Secondary Status: Chronic Qualifiers: Atrial fibrillation type: paroxysmal Qualified Code(s): I48.0 - Paroxysmal atrial fibrillation (4) Hypertension Priority: Secondary Status: Chronic Qualifiers: Hypertension type: essential hypertension Qualified Code(s): I10 - Essential (primary) hypertension (5) Diabetes Priority: Secondary Status: Chronic Qualifiers: Diabetes mellitus type: type 2 Diabetes mellitus induction machine setter insulin use: without long-term use Diabetes mellitus complication status: with hyperglycemia Qualified Code(s): E11.65 - Type 2 diabetes mellitus with hyperglycemia (6) Anemia Priority: Secondary Status: Suspected Qualifiers: Anemia type: iron deficiency Iron deficiency anemia type: unspecified iron deficiency Qualified Code(s): D50.9 - Iron deficiency anemia, unspecified Hospital course: Ms. Garcia is a 67 year old female with a long history of uncontrolled HTN and DM presented to ED with complaints of edema. She was evaluated and found to be markedly hypertensive and subsequently admitted. Ms Garcia was admitted to [facility]. Her BP remained uncontrolled and she was very limited in medications she could take. She was started on PRN hydralazine and lasix IV. She had echo which revealed EF of 25-30% which is new for patient. She was seen by cardiology and started on ARB, beta ema and Eliquis. Her BP remained elevated but had improved over admission. Her blood sugars were elevated as well but she reports that medications to treat it will actually increase it (and her BP acts the same way). Today her BP has improved some. She is asymptomatic with no CP or SOB. Edema has improved. She is afebrile. She is tolerating new medications. She will be discharged home with outpatient follow up. Discharge discussed with: patient, family - Time Spent with Patient Total time spent providing and/or coordinating discharge services: 42min - Discharge Medications Prescriptions: Apixaban [Eliquis] 5 mg PO BID #60 tablet Carvedilol [Coreg] 3.125 mg PO BIDWM #30 tablet Furosemide [Lasix] 20 mg PO DAILY 30 Days #30 tablet Losartan [Cozaar] 25 mg PO DAILY #30 tablet Home Medications: Apixaban [Eliquis] 5 mg PO BID #60 tablet 11/07/17 [Rx] Aspirin 81 mg PO DAILY tab.chew 11/07/17 [Rx] Carvedilol [Coreg] 3.125 mg PO BIDWM #30 tablet 11/07/17 [Rx] Furosemide [Lasix] 20 mg PO DAILY 30 Days #30 tablet 11/07/17 [Rx] Losartan [Cozaar] 25 mg PO DAILY #30 tablet 11/07/17 [Rx] Allergies/Adverse Reactions: 3 Allergy/AdvReac Type Severity Reaction Status Date / Time Calcium Channel Blocking Allergy Anaphylaxis Verified 11/05/17 20:34 Agent Dilt Erythromycin Base Allergy Hives Verified 11/05/17 13:35 Iodinated Contrast- Oral and Allergy Anaphylaxis Verified 11/06/17 14:45 IV Dye shellfish derived Allergy Anaphylaxis Verified 11/05/17 13:35 Fkmhhyj-Qox-Arg Reductase Allergy Anaphylaxis Verified 11/05/17 20:34 Inhibitor [Statins] Date of admission: 11/05/17 18:43 Primary care physician: PCP NONE Consults: 11/06/17 13:58 Consult to Cardiology [CONS] Routine Comment: Consulting Provider: Cardiology Karina Reason for Consult: EF 25-30% on echo, new finding, hx HTN uncontrolled, 3 wk onst worsening LE edema, 12lb wt gain 1 wk, no dyspnea, ecg sinus tachy, bnp 588 Time Notified: 13:55 Call Completed: Yes 11/06/17 15:09 Consult for Pharmacy Education [CONS] Routine Reason for Consult: Please discuss additives in NOAC , lovenox, heparin. Pt concerned about allergy to shellfish calcium. Eliquis recommended. Call Completed: Yes Discharging clinician: Manpreet Machado Anticipated date of discharge: 11/07/17 - Constitutional Vitals: Temp Pulse Resp BP Pulse Ox 97.5 F L 85 15 152/107 96 11/07/17 07:09 11/07/17 07:09 11/07/17 07:09 11/07/17 07:09 11/07/17 07:09 General appearance: Present: A&O X 3, pleasant, answers questions appropriately Exam: See below - Head Head exam: Present: normocephalic - Eye Eye exam: Present: EOMI, conjuntiva pink - ENT ENT exam: Present: mucous membranes dry - Respiratory Respiratory exam: Present: CTAB. Absent: rales, rhonchi, wheezes - Cardiovascular Cardiovascular exam: Present: RRR. Absent: tachycardia - GI/Abdominal GI/Abdominal exam: Present: normal bowel sounds, soft. Absent: tenderness - Extremities Exam Extremities exam: Present: warm. Absent: tenderness - Neurological Exam Neurological exam: Present: alert, oriented X3 - Skin Skin exam: Present: dry, warm Additional comments: Small scabbed areas on R arm - ? etiology. - Patient Status Disposition: Home, Self-Care Condition: Good Functional capacity at discharge: independent ambulation Overall status at discharge: patient is progressing back to baseline - Discharge Instructions Follow Up With: Aureliano Pearl [Family Provider] - NONE,PCP [Primary Care Provider] - Additional Instructions: Follow up with PCP Dr Meza in 1 week. Follow up with cardiology as arranged. - Diet and Activity Activity: increase activity as tolerated Diet: advance to your usual diet - VTE Documentation of Mechanical Device: Venous foot pump, device
--- NOTE | 2017-11-09 11:59 | Electrocardiograph Report ---
[address] [id number] Test Date: 2017-11-05 Pat Name: Isha Garcia Department: EXAM12 Room: 2NE19 Gender: F Polygraph Operator: : [id number] Requested By: Nile Cook Order Number: [id number] Reading MD: Andres Riley Measurements Intervals [place] Rate: 99 P: [place]: QRS: 84 QRSD: 112 T: 73 QT: 380 QTc: 488 Interpretive Statements Atrial fibrillation Poor R wavae progression Probable left ventricular hypertrophy Nonspecific ST-T changes Electronically Signed On 11-09-2017 11:58:17 EDT by Andres Riley
== END 2017-11-07 13:40 | disposition home or self-care (01) | DRG 293 ==
LOC: EMEROOARM 13:19 → SUATTDRO 18:43 → 2NENU 18:43
PROVIDERS: ADMIT Family Medicine; ATTEND Internal Medicine